=== PATIENT | female | born 1940 | race Caucasian/White ===

== ENCOUNTER 2019-02-07 13:28 | Emergency (ER) | payer MEDICARE, OTHER ==
[~2019-02-07] VITALS: Ht 162.6 cm; Wt 69.0 kg
[~2019-02-07 13:28] MED LIST: AMARYL2 MG PO; HYDROCHLOROTHIA25 MG PO; MACROBID 100 M100 MG PO; METFORMIN HCL1000 MG PO; SIMVASTATIN20 MG PO; WARFARIN SODIUM5 MG PO; ZESTRIL40 MG PO
[2019-02-07] MEDS ORDERED: METOPROLOL SUC200 MG PO (13:52)
[2019-02-07] MEDS ORDERED: PIOGLITAZONE HC15 MG PO (13:52)
[2019-02-07] MEDS ORDERED: ZOFRAN4 MG PO (16:11)
[2019-02-07] MEDS ORDERED: OXYCODONE HCL5 MG PO (16:11)
== END 2019-02-07 16:29 | disposition home or self-care (01) ==
LOC: ED 13:28
DX: S32.019A Unspecified fracture of first lumbar vertebra, initial encounter for closed fracture (principal); S22.089A Unspecified fracture of T11-T12 vertebra, initial encounter for closed fracture; X50.9XXA Other and unspecified overexertion or strenuous movements or postures, initial encounter; I48.91 Unspecified atrial fibrillation; I10 Essential (primary) hypertension; Z79.899 Other long term (current) drug therapy; Z79.01 Long term (current) use of anticoagulants
CPT/HCPCS: 72100; 99283-25

== ENCOUNTER 2021-03-15 16:28 | Emergency (ER) | payer MEDICARE, OTHER ==
[~2021-03-15] VITALS: Ht 160 cm; Wt 64.0 kg
[~2021-03-15 16:28] MED LIST changes: +METOPROLOL SUC200 MG PO; +OXYCODONE HCL5 MG PO; +PIOGLITAZONE HC15 MG PO; +ZOFRAN4 MG PO
[2021-03-15] MEDS ORDERED: WARFARIN SODIUM3 MG PO (16:44)
[2021-03-15] MEDS ORDERED: HYDROCODON-ACE1 EA10 PO (18:44)
== END 2021-03-15 18:58 | disposition home or self-care (01) ==
LOC: ED 16:28
DX: S42.202A Unspecified fracture of upper end of left humerus, initial encounter for closed fracture (principal); D68.9 Coagulation defect, unspecified; W18.39XA Other fall on same level, initial encounter; I48.91 Unspecified atrial fibrillation; I10 Essential (primary) hypertension; Z79.899 Other long term (current) drug therapy; Z79.01 Long term (current) use of anticoagulants; Z79.84 Long term (current) use of oral hypoglycemic drugs
CPT/HCPCS: 70450; 71045; 73060; 80053; 85025; 85610; 96374; 99284-25; J1170

== ENCOUNTER 2021-10-13 11:18 | Emergency (ER) | payer MEDICARE, OTHER ==
[~2021-10-13] VITALS: Ht 160 cm; Wt 64.0 kg
[~2021-10-13 11:18] MED LIST changes: +HYDROCODON-ACE1 EA10 PO; +WARFARIN SODIUM3 MG PO
[2021-10-13] MEDS ORDERED: COREG3.125 MG PO (12:06)
--- NOTE | 2021-10-14 15:46 | EKG ---
[facility] [address] [facility] [place], [place] [address] Signed Atrial fibrillation with rapid ventricular response Left axis deviation ST \T\ T wave abnormality, consider anterolateral ischemia Prolonged QT Abnormal ECG No previous ECGs available Confirmed by MAYRA RODRIGUES MD ([id number]) on 10/14/2021 3:46:08 PM Electronically Signed By: MAYRA RODRIGUES MD 10/14/21 1546 PATIENT NAME: RAVI BREWER Electrocardiogram DATE OF : 40 PHYSICIAN: MAYRA RODRIGUES MD REPORT #: [id number] REPORT IS CONFIDENTIAL AND NOT TO BE RELEASED WITHOUT AUTHORIZATION
--- NOTE | 2021-10-14 15:46 | EKG ---
[facility] [address] [facility] [place] [address] Signed Atrial fibrillation Left axis deviation ST \T\ T wave abnormality, consider anterolateral ischemia Prolonged QT Abnormal ECG When compared with ECG of 13-OCT-2021 11:30, (Unconfirmed) No significant change was found Confirmed by MAYRA RODRIGUES MD ([id number]) on 10/14/2021 3:46:12 PM Electronically Signed By: MAYRA RODRIGUES MD 10/14/21 1546 PATIENT NAME: RAVI BREWER Electrocardiogram DATE OF : 40 PHYSICIAN: MAYRA RODRIGUES MD REPORT #: [id number] REPORT IS CONFIDENTIAL AND NOT TO BE RELEASED WITHOUT AUTHORIZATION
== END 2021-10-13 15:28 | disposition short-term general hospital (02) ==
LOC: ED 11:18
DX: I21.4 Non-ST elevation (NSTEMI) myocardial infarction (principal); I10 Essential (primary) hypertension; I48.91 Unspecified atrial fibrillation; Z79.899 Other long term (current) drug therapy; Z79.01 Long term (current) use of anticoagulants; Z79.84 Long term (current) use of oral hypoglycemic drugs
CPT/HCPCS: 71046; 80053; 83735; 84484; 85025; 85610; 93005; 93010; 96374; 96375; 96376; 99285-25; J1644; U0003

== ENCOUNTER 2023-05-14 18:20 | Emergency (ER) | payer MEDICARE, OTHER ==
[~2023-05-14] VITALS: Ht 160 cm; Wt 53.1 kg
--- OUTSIDE RECORDS SUMMARY | ~2023-05-14 | XMS | Continuity of Care Document ---
Demographics + + + | Address | [address] | | | [place] [address] | + + + | Preferred Language | Unknown | + + + | Marital Status | | + + + | Gnosticist Affiliation | Unknown | + + + | Race | White | + + + | Ethnic Group | Unknown | + + + Author + + + | Author | [facility] | + + + | Organization | [facility] | + + + | Address | [address] | | | [place] [address] | + + + | Phone | | + + + Care Team Providers + + + + | Care Production Quality Analyst Name | Role | Phone | + + + + Unavailable | Unavailable | + + + + Allergies No information. Encounters No information. Functional Status No information. Immunizations No information. Medications No information. Problems + + + + | date | description | facility | + + + + | 2021-03-15 16:29 | Coagulation defect, | [facility] | | | unspecified | [facility] | + + + + | 2021-03-15 16:29 | Unspecified fracture of | [facility] | | | upper end of left humerus, | [facility] | | | initial encounter for | | | | closed fracture | | + + + + | 2021-03-15 16:29 | Other fall on same level, | [facility] | | | initial encounter | [facility] | + + + + | 2023-04-27 14:45 | UNSPECIFIED ATRIAL | [facility] | | | FIBRILLATION | | + + + + | 2023-04-27 14:45 | ENCOUNTER FOR THERAPEUTIC | [facility] | | | DRUG LEVEL MONITORING | | + + + + | 2023-04-27 14:45 | 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 Results/Labs No information. Social History No information. Vital Signs No information."
--- OUTSIDE RECORDS SUMMARY | ~2023-05-14 | XMS | Continuity of Care Document ---
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 Results/Labs No information. Social History No information. Vital Signs No information."
[~2023-05-14 18:20] MED LIST changes: +COREG3.125 MG PO; +GLIMEPIRIDE4 MG PO; +LISINOPRIL10 MG PO; +METOPROLOL TAR100 MG PO; +POTASSIUM CHLO10 ME2 PO; +SIMVASTATIN40 MG PO; +TORSEMIDE20 MG PO
[2023-05-14 22:00] VITALS: BP 107/65
--- NOTE | 2023-05-19 19:19 | EKG ---
[facility] [address] [facility] [place] [address] Signed Atrial fibrillation with rapid ventricular response Left axis deviation Low voltage QRS Abnormal ECG When compared with ECG of 13-OCT-2021 13:20, Significant changes have occurred Confirmed by YUNIEL PRICE MD ([id number]) on 05/19/2023 7:19:06 PM Electronically Signed By: YUNIEL PRICE 05/19/231918 PATIENT NAME: RAVI BREWER BERNABE Electrocardiogram DATE OF : 40 PHYSICIAN: YUNIEL PRICE REPORT #: [id number] REPORT IS CONFIDENTIAL AND NOT TO BE RELEASED WITHOUT AUTHORIZATION
== END 2023-05-14 22:00 | disposition home or self-care (01) ==
LOC: ED 18:20
DX: E11.65 Type 2 diabetes mellitus with hyperglycemia (principal); I10 Essential (primary) hypertension; Z79.01 Long term (current) use of anticoagulants; Z79.84 Long term (current) use of oral hypoglycemic drugs
CPT/HCPCS: 36415; 51701; 70450; 71045; 80053; 81003; 84484; 85025; 93005; 93010; 99285 25; G0480; J1815; J7040

== ENCOUNTER 2024-03-03 14:24 | Inpatient (IN) | payer MEDICARE, OTHER ==
[~2024-03-03] VITALS: Ht 160 cm; Wt 64.0 kg
[~2024-03-03 14:24] MED LIST changes: +BASAGLAR K100 UNIT/1 SUB-Q; +METOPROLOL SUC100 MG PO; +METOPROLOL SUCC50 MG PO
[2024-03-03] MEDS ORDERED: ADULT LOW DOSE81 MG PO (14:39)
[2024-03-03 14:44] LABS: BASOPHILS 0.3 % (0-2); EOSINOPHILS 0.1 % (0-6); HEMATOCRIT 35.4 % (35.0-50.0); HEMOGLOBIN 11.8 g/dL (12.0-18.0); LYMPHOCYTES 19.6 % (24-44); MCH 29.2 (27-36); MCHC 33.4 g/dl (30-36); MCV 87.2 fl (81-99); MONOCYTES 4.9 % (0-12); NEUTROPHILS 75.1 % (39-80); PLATELET COUNT 238 K/uL (140-440); RBC 4.06 M/ul (4.3-5.7); RDW 15.5 (10.5-15.0)
[2024-03-03] MEDS ORDERED: SODIUM CHLORIDE 0.9% 1,000 ML IV ONE (14:45)
[2024-03-03 15:07] LABS: ALBUMIN 2.7 g/dL (3.4-5.0); ALBUMIN/GLOBULIN RATIO 0.77 (1.1-2.4); BILIRUBIN, TOTAL 0.3 ng/dL (0.2-1.0); BUN/CREATININE RATIO 46.44 (6.0-28.6); CALCIUM 7.7 mg/dL (8.5-10.1); CREATININE, SERUM 2.95 mg/dL (0.55-1.02); PROTEIN, TOTAL 6.2 g/dL (6.4-8.2)
[2024-03-03 15:09] LABS: BILIRUBIN, URINE NEGATIVE (negative); BLOOD/HGB, URINE NEGATIVE (Negative); KETONE, URINE NEGATIVE (Negative); LEUK ESTERASE, URINE NEGATIVE (negative); NITRITE, URINE NEGATIVE (negative); PH, URINE 5.5 (5-7)
[2024-03-03] MEDS ORDERED: SODIUM CHLORIDE 0.9% 1,000 ML IV SCH (17:15)
[2024-03-03 18:18] VITALS: BP 94/64
[2024-03-03] MEDS ORDERED: DEXTROSE 5% 1,000 ML IV PRN (18:45)
[2024-03-03] MEDS ORDERED: GLUCAGON,HUMAN RECOMBINANT 1 MG/ML VIAL SUB-Q PRN (18:45)
[2024-03-03] MEDS ORDERED: IBLOOD GLUCOSE TEST STRIP 1 EA TEST XX PRN (18:45)
[2024-03-03] MEDS ORDERED: DEXTROSE 50% 50 ML SYR IV PRN ×2 (18:45)
[2024-03-03 18:57] VITALS: BP 94/64
--- NOTE | 2024-03-03 18:58 | NUR ---
Patient to the medical floor, alert to self and place. Patient denies pain at this time. IV infusing per provider order. Patient's son at bedside for admit questions. Oriented patient to room and call light. Notable bruise to right hand/wrist area-son reports it has been there. Left lower lateral leg has a wound, allyvn dressing in place.
[2024-03-03] MEDS ORDERED: MENTHOL/CETYLPYRD CL 1 LOZ LOZENGE PO PRN (19:00)
[2024-03-03] MEDS ORDERED: MAGNESIUM SULFATE 2 GM/50 ML BAG IV ONE (19:00)
[2024-03-03] MEDS ORDERED: BENZONATATE 100 MG CAP PO PRN (20:45)
[2024-03-03] MEDS ORDERED: ondansetron HCL 4 MG/2 ML VIAL IV PRN (20:45)
[2024-03-03] MEDS ORDERED: ACETAMINOPHEN 500 MG TAB PO PRN (20:45)
[2024-03-03] MEDS ORDERED: MAGNESIUM HYDROXIDE 30 ML UDC PO PRN (20:45)
--- NOTE | 2024-03-03 20:55 | NUR ---
LAB IN FOR BLOOD DRAW, MG 2GM IV HUNG PER EARILIER ORDER, UPDATED THIS WAS JUST GIVEN, MG BLOOD LEVEL CANCELED AT THIS TIME, PLAN TO REPEAT IN AM.
[2024-03-03] MEDS ORDERED: INSULIN LISPRO 100 UNIT/ML ML SUB-Q SCH (21:00)
[2024-03-03] MEDS ORDERED: MELATONIN 3 MG TAB PO PRN (21:00)
[2024-03-03] MEDS ORDERED: IBLOOD GLUCOSE TEST STRIP 1 EA TEST VI SCH (21:00)
[2024-03-03 21:20] LABS: PROTIME 114.8 Sec (11.2-14.2)
[2024-03-03 21:21] LABS: PARTIAL THROMBOPLASTIN TIME 76.2 Sec (22.9-41.3)
--- NOTE | 2024-03-03 21:34 | NUR ---
2132 - TIGE? from lab called to report a critical lab value - lactic acid 3.2, inr 15.53 and protime of 114.8. will notify primary rn and she will assess pt and call
[2024-03-03 21:38] LABS: INR 15.53 (0.80-1.30)
--- NOTE | 2024-03-03 22:00 | NUR ---
DR WOOD UPDATED ON ELEVATED INR 15.53 AND PT OF 114.8, CONTINUE FLUID ORDERED, NS AT 75ML/HR, CHECK FOR SITE OF BLEEDING, UPDATED ON BRUISE ON RIGHT WRIST FROM [facility] LAB STICK.
[2024-03-03 22:12] VITALS: BP 81/41
--- NOTE | 2024-03-03 22:12 | NUR ---
PT REMAINS AWAKE AND ALERT, SKIN PALE AND COOL, FINGERS AND LOWER LEGS DUSKY, BP 81/41, CHECKED TWICE, UNABLE TO OBTAIN TEMP ORAL, TEMPORAL OR AX SO RECTAL TEMP DONE, 96.1. ASSESSMENT COMPLETED, TELE ON FOR ATRIAL FIB, BREATH SOUNDS CLEAR, ACTIVE BT'S, SOFT ABDOMIN, PULSES RADIAL AND PEDAL FAINT, LLLEG WITH AVELLYN DRESSING WITH NOTED QUARTER SIZE DRAINAGE NOTED IN CENTER OF DRESSING. ATTENDS DRY.
--- NOTE | 2024-03-03 22:25 | NUR ---
TC TO DR WOOD, UPDATED ON CRITICAL LAB VALUE ON INR OF 15.53, PT 114.8, LACTIC ACID OF 3.2, ORDERS RECEIVED TO GIVEN VIT K 10MG PO, INCREASE IVF TO 100ML/HR, UPDATED ON NO U/O, REQUEST BLADDER SCAN, ORDERS RECEIVED TO STRAIGHT CATH IF RESIDUAL GREATER THAN 350ML, STATES NOT TO START ANOTHER SL AT THIS TIME DUE TO PROLONGED BLEEDING TIMES, ORDERS RECEIVED TO REPEAT LACTIC ACID IN ONE HOUR. STATES SHE WILL HOLD OFF ON NS BOLUS SINCE REPEAT BP PER TYRESE FLORES WAS REPORTED TO BE 127/102 WITH SMALL CUFF ON RIGHT ARM.
[2024-03-03 22:30] VITALS: BP 127/102
[2024-03-03] MEDS ORDERED: PHYTONADIONE 2.5 MG/2.5 ML SYR PO ONE (22:45)
[2024-03-03 22:50] VITALS: BP 73/48
--- NOTE | 2024-03-03 22:50 | NUR ---
BLOOD LEAKAGE NOTED AROUND L AC IV SITE, GOOD BLOOD RETURNED NOTED, FLUSHES WELL, SITE REDRESSED, PRESSURE DRESSING TO OVER SITE.
--- NOTE | 2024-03-03 23:00 | NUR ---
NO VOID NOTED, ATTENDS DRY, BLADDER SCANNED FOR 97ML, HEAT IN ROOM TURNED UP TO 76 DEGREES, BLANKETS REMAIN ON PT.
--- NOTE | 2024-03-03 23:20 | NUR ---
PT REMAINS AWAKE, PT MEDICATED WTIH VIT K 10MG PO PER ORDER.
--- NOTE | 2024-03-03 23:50 | NUR ---
LAB IN FOR BLOOD DRAW FOR LACTIC ACID.
[2024-03-03 23:51] VITALS: BP 78/52
[2024-03-04] VITALS (24 sets, daily range): BP systolic 78–148; BP diastolic 56–96
--- NOTE | 2024-03-04 00:05 | NUR ---
RN TO BEDSIDE, PT REMAINS AWAKE, ALERT, DENIES NEEDS, BP PER SMALL CUFF LEFT ARM 73/48, RECHECKED AFTER HEAD LOWERED NOW 78/52, MANUAL CUFF COMPLETED AND 78/60, TEMP NOW 97.1 ORALLY, FINGERS SLIGHTLY WARMER BUT REMAIN PALE, IV SITE INTACT.
--- NOTE | 2024-03-04 00:20 | NUR ---
TC TO DR WOOD, UPDATED ON SOFT BP'S, 73/48 WITH RECHECK OF 78/52, MANUAL BP DONE ON RIGHT ARM IS 78/60, PT'S TEMP UP TO 97.1 PO, SATS STABLE ON RA, NOTIFIED OF RECENT LACTIC ACID OF 2.4, ORDERS RECEIVED TO START A BOLUS OF 1 LITER NS OVER 1 HOUR AND TRANSFER TO CCU, ORDERS RECEIVED PER TYRESE FLORES. SUPERVISIOR UPDATED PER CHARGE NURSE. NS BOLUS STARTED PER LAC SITE, SITE INTACT.
--- NOTE | 2024-03-04 00:26 | NUR ---
PRIMARY RN RADHA ON PHONE WITH DR WOOD FOR pt UPDATE. PER PRIMARY RN, pt TO BE TRANSFERRED TO CCU. FINISH OPENER CHINO MADE AWARE AT THIS TIME.
[2024-03-04] MEDS ORDERED: SODIUM CHLORIDE 0.9% 1,000 ML IV ONE ×2 (00:30→00:45)
--- NOTE | 2024-03-04 00:31 | NUR ---
X1L BOLUS OF NS TO INFUSE OVER 1 HR PLACED PER REQUEST OF PRIMARY RN RADHA. BOLUS ALREADY HUNG AND INFUSING DIRECTED, HUNG BY PRIMARY RN.
--- NOTE | 2024-03-04 00:44 | NUR ---
RECEIVED TELPHONE ORDER FROM . VERIFIED ORDERS USING THE REPEAT BACK METHOD.
[2024-03-04] MEDS ORDERED: SODIUM CHLORIDE 0.9% 1,000 ML IV SCH (00:45)
[2024-03-04] MEDS ORDERED: NOREPINEPHRINE BITARTRATE/D5W 250 ML IV SCH ×2 (00:45→02:45)
--- NOTE | 2024-03-04 01:10 | NUR ---
NEW IV PLACED. PATIENT TOLERATED ACTIVITY WELL.
--- NOTE | 2024-03-04 01:25 | NUR ---
this rn assisted with transferring pt to ccu room #127 at this time with help from precious you. precious you to take over pt care at this time.
--- NOTE | 2024-03-04 01:25 | NUR ---
PT TRANSFERED TO CCU PER BED WITH TYRESE FLORES.
--- NOTE | 2024-03-04 01:30 | NUR ---
REPORT FROM KAIN KRAUS RN TO TRANSFER CARE TO THIS RN IN CCU. AT BEDSIDE NOW, PATIENT ALERT AND ORIENTED, ON ROOM AIR. PATIENT REPORTS NO PAIN OR NAUSEA, SHE REPORTS SHE IS TIRED AND WOULD LIKE TO TRY TO SLEEP.
--- NOTE | 2024-03-04 02:24 | NUR ---
PATIENT STARTED ON LEVOPHED GTT DUE TO SOFT B/P. PATIENT ALERT AND ORIENTED.
--- NOTE | 2024-03-04 04:14 | NUR ---
TWO PERSON ASSIST UP TO BEDSIDE COMMODE, PATIENT VOIDED 150ML URINE AND SMALL FORMED BM. PATIENT CONTINUES TO BE WEAK, PATIENT DID SAY, "I THINK I AM FEELING A LITTLE BETTER" PATIENT BACK TO BED, IV SITE AT LEFT AC LEAKING BLOOD, REMOVED SITE AND APPLIED COMPRESSION.
--- NOTE | 2024-03-04 05:00 | NUR ---
ROUNDING ON PATIENT SHE IS ALERT AND ORIENTED, SHE SAID "I AM JUST THINKING ABOUT ALL THE THINGS I SHOULD GET UP AND DO" THIS RN SAID, "YOU SHOULD REST NOW, BECAUSE DAYSHIFT WILL WANT YOU UP TO RECLINER FOR MEALS AND ACTIVITIES TODAY.
--- NOTE | 2024-03-04 05:12 | EKG ---
[facility] [address] [facility] [place] [address] Signed Atrial fibrillation Left axis deviation Anterior infarct (cited on or before 03-MAR-2024) Abnormal ECG When compared with ECG of 14-MAY-2023 19:05, No significant change was found Confirmed by Surendra Hutchison ([id number]) on 03/04/2024 5:12:32 AM Electronically Signed By: SURENDRA HUTCHISON MD 03/04/24511 PATIENT NAME: RAVI BREWER Electrocardiogram DATE OF : 40 PHYSICIAN: SURENDRA HUTCHISON MD REPORT #: [id number] REPORT IS CONFIDENTIAL AND NOT TO BE RELEASED WITHOUT AUTHORIZATION
[2024-03-04 05:36] LABS: BASOPHILS 0.3 % (0-2); EOSINOPHILS 0.5 % (0-6); HEMOGLOBIN 12.2 g/dL (12.0-18.0); LYMPHOCYTES 13.5 % (24-44); MCH 28.9 (27-36); MCV 87.5 fl (81-99); MONOCYTES 5.9 % (0-12); NEUTROPHILS 79.8 % (39-80); PLATELET COUNT 230 K/uL (140-440); RBC 4.23 M/ul (4.3-5.7); RDW 15.8 (10.5-15.0)
--- NOTE | 2024-03-04 05:42 | NUR ---
PATIENT IS ALERT AND ORIENTED, AM ASSESSMENT COMPLETE.
[2024-03-04 05:45] LABS: ANION GAP 22.7 (7-21); BUN/CREATININE RATIO 49.8 (6.0-28.6); CALCIUM 7.4 mg/dL (8.5-10.1); CREATININE, SERUM 2.59 mg/dL (0.55-1.02); POTASSIUM 4.7 mmol/L (3.5-5.1)
--- NOTE | 2024-03-04 08:05 | NUR ---
Report received from third shift lieutenant RN. Patient resting in bed, awakens to voice. Patient intermittently disoriented to place, staff, however redirectable. CBG WNL. Afib rhythm noted, coarse/dim LSC, bowel tones active. 2+ edema to BLE. Wound to L lateral calf examined, photos and measurements taken. Yellow drainage noted, wound cleansed and new foam dressing applied. See flowsheet for gtt rate- pt remains stable with BP WNL. Breakfast provided.
--- NOTE | 2024-03-04 09:00 | NUR ---
1 unit SS administered. Pt finished with breakfast. Denies need to void at this time, states comfortable with no needs. Bed alarm on.
--- NOTE | 2024-03-04 09:54 | NUR ---
LOADER SEMICONDUCTOR DIES AND RN ASSISTED PT TO BEDSIDE COMMODE. PT HAD AN OUTPUT AND A SMALL BM. THIS WAS ALL CHARTED. PT AMBULATED MOSTLY BY JUST PIVOTING WITH TWO PERSON ASSIST. PT TOLERATED THIS WELL. RN HELPED PT WITH WIPING HER LENY AREA AND BEHIND. PT WAS PLACED BACK INTO BED WITH A WARM BLANKET NO FIRTHER COMPLAINTS. BED ALARM IS SUPERVISOR INSPECTION AND [facility]
--- NOTE | 2024-03-04 10:40 | NUR ---
PATIENT WORKING WITH PHYSICAL THERAPY. UP TO CHAIR WITH MODERATE TO MAX ASSIST. PATIENT RESTING AND WATCHING TV, LOOKING OUT WINDOW. CALL LIGHT IN REACH.
[2024-03-04] MEDS ORDERED: PHARMACY RENAL DOSE ADJUSTMENT 1 DOSE MISC PO SCH (12:00)
--- NOTE | 2024-03-04 12:29 | NUR ---
Patient up to BSC with 2PA assist and FWW. Back to chair, eating lunch, 1 unit SS insulin provided. Call light in reach.
--- NOTE | 2024-03-04 13:45 | NUR ---
NEW BAG IVF HUNG. PATIENT RESTING IN CHAIR, RECLINING. NO NEEDS AT THIS TIME.
[2024-03-04] MEDS ORDERED: WARFARIN PER PHARMACY PROTOCOL PO SCH (16:00)
--- NOTE | 2024-03-04 16:40 | NUR ---
Patient's family visiting. Pt 2PA with FWW to BS for large BM and void. BM light, zaheer/freitas color with gold tint/metallic sheen noted. Pt back to chair and eating dinner.
[2024-03-04 16:41] LABS: PROTIME 54.8 Sec (11.2-14.2)
[2024-03-04 16:43] LABS: INR 6.16 (0.80-1.30)
--- NOTE | 2024-03-04 18:45 | NUR ---
PATIENT 1-2PA WITH FWW BACK TO BED REQUIRING FREQUENT SAFETY CUEING. IVF INFUSING WNL. PATIENT ON ROOM AIR, LSC BUT DIM, BOWELS ACTIVE. HR IN AFIB RHYTHM, STABLE. HOSPITAL COOK IN TO CONSULT WITH PATIENT.
--- NOTE | 2024-03-04 21:03 | NUR ---
PATIENT RESTING QUIETLY IN BED EYES CLOSED. NO DISTRESS NOTED, PATIENTS WIG LAYING ON THE FLOOR.
--- NOTE | 2024-03-04 21:44 | NUR ---
PATIENT RESTING IN BED, ALERT AND ORIENTED, SHE TOLD ME ABOUT HER DAY, SHE SAID SHE FEELS TIRED AND THINKS SHE WILL TRY TO TAKE A NAP. THIS RN COMPLETED HS ASSESSMENT AND HS MEDICATION ADMINISTERED. FRESH ICE WATER HAS BEEN PROVIDED, SHE REPORTS NO OTHER NEEDS AT THIS TIME. CALL LIGHT IN REACH AND BED ALARM ON FOR PATIENT SAFETY. SHE REPORT NO PAIN OR NAUSE AND IS CURRENTLY AFEBRILE
--- NOTE | 2024-03-04 23:46 | NUR ---
PATIENT RESTING IN BED ALERT, DISORIENTED TO TIME OF DAY, REPORTS NO NEEDS AT THIS TIME. BED ALARM ON FOR PATIENT SAFETY AND CALL LIGHT IN REACH.
[2024-03-05] VITALS (26 sets, daily range): BP systolic 103–139; BP diastolic 61–98
--- NOTE | 2024-03-05 00:06 | NUR ---
PATIENT RESTING IN BED ALERT, SHE REPORTS SHE JUST HAS BEEN ABLE TO SLEEP MUCH. NO REQUESTS OR NEEDS AT THIS TIME.
--- NOTE | 2024-03-05 00:07 | NUR ---
PATIENT DECLINES WANTING MELATONIN TO HELP HER SLEEP. SHE SAID "OH, NO HTANKS I DOING ALRIGHT"
--- NOTE | 2024-03-05 03:20 | NUR ---
PATIENT NOTED TO BE HEARD COUGHING, THIS RN INTO ROOM TO ROUND, ASKED PATIENT IF SHE FELT SHE NEEDED TO GET UP TO USE THE COMMODE, SHE SAID "NO, I DONT FEEL LIKE I NEED TO RIGHT NOW"
--- NOTE | 2024-03-05 03:58 | NUR ---
PATIENT BLADDER SCANNED FOR 526ML AT THIS TIME, HAVE SPOKE WTIH HE SAID IF SHE BLADDER SCANS FOR GREATER THAN 450ML OK TO PLACE CANNON CATHETER IF SHE DOES FEEL LIKE VOIDING. OR TO GIVE 500ML BOLUS IF MINIMAL URINE NOTED ON BLADDER SCAN. PATIENT REPORTS SHE WANTS TO WAIT TO GET UP TO VOID, THIS RN DISCUSSED WITH PATIENT THAT IT WILL EASIER FOR HER TO VOID IN BEDSIDE COMMODE THAN TO HAVE CANNON PLACED. SHE THEN AGREED TO BEDSIDE COMMODE WITH TWO RN ASSIST. PATIENT VOIDED 450ML IN BEDSIDE COMMODE.
--- NOTE | 2024-03-05 05:14 | NUR ---
PATIENT ALERT TO RN IN ROOM ROUNDING. PATIENT REPORT HER BACK IS SORE IN CURRENT POSITION, THIS RN AND SUPERVISOR PRODUCTION DEPARTMENT LEA BOOSTED PATIENT UP IN BED AND PLACED PILLOWS UNDER HER KNEES. SHE REPORT SHE IS MUCH MORE COMFORTABLE NOW, NO OTHER REQUESTS OR CONCERNS AT THIS TIME.
[2024-03-05 05:28] LABS: BASOPHILS 0.4 % (0-2); EOSINOPHILS 2.3 % (0-6); HEMATOCRIT 30.3 % (35.0-50.0); HEMOGLOBIN 10.2 g/dL (12.0-18.0); LYMPHOCYTES 21.7 % (24-44); MCH 29.1 (27-36); MCHC 33.6 g/dl (30-36); MCV 86.6 fl (81-99); MONOCYTES 8.3 % (0-12); NEUTROPHILS 67.3 % (39-80); PLATELET COUNT 168 K/uL (140-440); RDW 15.7 (10.5-15.0)
[2024-03-05 05:33] LABS: ANION GAP 19.1 (7-21); BUN/CREATININE RATIO 49.76 (6.0-28.6); CALCIUM 7.4 mg/dL (8.5-10.1); CREATININE, SERUM 2.11 mg/dL (0.55-1.02); POTASSIUM 4.1 mmol/L (3.5-5.1)
[2024-03-05 05:34] LABS: INR 3.11 (0.80-1.30); PROTIME 31.7 Sec (11.2-14.2)
--- NOTE | 2024-03-05 05:53 | NUR ---
IV ALARMING, PT WITH EYES CLOSED, RESP REGULAR, UNLABORED. BED ALARM IN PLACE. NEW BAG FLUIDS NOW INFUSING. PT DID NOT STIR WHEN ASSESSING IV RIGHT FOREARM.
--- NOTE | 2024-03-05 06:38 | NUR ---
UPDATED ON PATIENT NIGHT I/O, NO NEW CONCERNS THIS AM.
--- NOTE | 2024-03-05 07:50 | NUR ---
In room to complete morning assessment. Pt resting in bed with eye's closed. awakened easily. Pt stated, "Im really tired this morning." Pt refused breakfast at this time. will leave breakfast tray at bedside and continue to encourage.
[2024-03-05] MEDS ORDERED: METOPROLOL SUC100 MG PO (07:53)
[2024-03-05] MEDS ORDERED: BASAGLAR K100 UNIT/1 SUB-Q (07:54)
--- NOTE | 2024-03-05 09:30 | NUR ---
PHYSICAL THERAPY IN ROOM WITH PATIENT.
--- NOTE | 2024-03-05 09:38 | NUR ---
IN ROOM TO TURN AND CHANGED PATIENT. PT HAS SMALL AMOUNT OF DARK LIQUID STOOL. CLEANED AND REPLACED PER WICK AT THIS TIME. PT TOLERATED WELL. APPLIED BARRIER CREAM. PTS DAUGHTER REMAINED AT BEDSIDE.
--- NOTE | 2024-03-05 09:44 | NUR ---
IN ROOM WITH PATIENT.
--- NOTE | 2024-03-05 10:23 | NUR ---
PT UP IN CHAIR EATING BREAKFAST AT THIS TIME. PTS SON IN ROOM.
--- NOTE | 2024-03-05 11:27 | NUR ---
PT UP IN CHAIR. WARM BLANKET GIVEN. PT DENIES FURTHER NEEDS AT THIS TIME. CALL LIGHT WITHIN REACH.
--- NOTE | 2024-03-05 12:56 | NUR ---
PATIENT FINISHED BREAKFAST LATE AT 1045. BLOOD SUGAR DONE BEFORE LUNCH. PATIENT STATES SHE ISNT OVERLY HUNGRY BUT WILL SEE HOW MUCH SHE CAN EAT. BLOOD SUGAR 231. 3 UNITS ADMINITERED D/T PATIENTS JUST EATING AND UNSURE IF SHE WILL EAT MUCH LUNCH. VERIFIED WITH MARK BENÍTEZ.
--- NOTE | 2024-03-05 13:05 | NUR ---
PT RESTING IN CHAIR EATING LUNCH. PT NEED ASSISTANCE OPENING MILK BUT DENIES FURTHER NEEDS AT THIS TIME. CALL LIGHT WITHIN REACH.
--- NOTE | 2024-03-05 13:30 | NUR ---
pt up to bedside commode with front wheeled walker. voided 500ml. pt back to bed. pts heart rate increased into the 140's with activity. will discuss with md starting pts home medication. warm blankets given. fresh water at bedside. call light within reach.
[2024-03-05] MEDS ORDERED: METOPROLOL SUCCINATE 100 MG TABCR PO SCH ×2 (13:40→14:22)
[2024-03-05] MEDS ORDERED: METOPROLOL SUCCINATE 50 MG TABCR PO SCH ×2 (13:51→21:00)
[2024-03-05] MEDS ORDERED: WARFARIN SOD 5 MG TAB PO ONE (14:30)
--- NOTE | 2024-03-05 15:28 | NUR ---
IN ROOM TO CHANGE DRESSING TO PATIENTS LEFT LOWER LATERAL LEG. CLEANSED WOUND WITH WOUND MERCURY CELL CLEANER. USED SKIN PREP ON THE LENY WOUND AND PLACED BREANA HONEY IN THE WOUND BED. PT HAS BROWN/BLACK TISSUE IN THE WOUND BED THAT MAY NEED DEBRIDMENT. FOAM DRESSING PLACED ON TOP OF BREANA HONEY AT THIS TIME. PT TOLERATED DRESSING CHANGED WELL. RESTING IN BED WITH NO COMPLAINTS AT THIS TIME.
[2024-03-05] MEDS ORDERED: WARFARIN SOD 5 MG TAB PO SCH (16:00)
--- NOTE | 2024-03-05 16:25 | NUR ---
IN ROOM TO ASSIST PATIENT TO BEDSIDE COMMODE AND INTO CHAIR. PT UP WITH 1 PERSON ASSIST AND FRONT WHEELED WALKER. PTS HEART RATE JUMPED INTO THE 140'S WITH ACTIVITY. HEART RATE DECREASED INTO THE 120'S WHILE AT REST. PT NOW IN CHAIR. COMPLAINING OF LEFT LEG PAIN. GAVE 500MG TYLENOL PO AT THIS TIME.
--- NOTE | 2024-03-05 17:10 | NUR ---
PT UP IN CHAIR FOR DINNER. ASSISTED WITH FOOD TRAY SET UP. PT REQUESTING A PUDDING AT THIS TIME. 1 SUGAR FREE PUDDING GIVEN. PT DENIES FURTHER NEEDS. CALL LIGHT WITHIN REACH.
--- NOTE | 2024-03-05 18:11 | NUR ---
PT UP IN CHAIR WATCHING TV. PT ATE ABOUT 50% OF DINNER. PT HAS NO COMPLAINTS OF PAIN AT THIS TIME. CALL LIGHT WITHIN REACH.
--- NOTE | 2024-03-05 19:28 | NUR ---
report from kalee rn, pt hr 109, [id number] light in reach.
--- NOTE | 2024-03-05 21:34 | NUR ---
hob up for pill with water- swallow well but coughs after - call light in reach - denies needs, alarm on bed, insulin given - pt denies need for melatonin.
[2024-03-06] VITALS (20 sets, daily range): BP systolic 97–153; BP diastolic 63–101
--- NOTE | 2024-03-06 01:00 | NUR ---
pt resting in bed with eyes closed, rr reg, hr 90-100's, call light in reach.
--- NOTE | 2024-03-06 05:00 | NUR ---
lab in for draw, pt awakens slightly and tollerates well, denies needs, call light in reach.
[2024-03-06 05:48] LABS: BASOPHILS 0.4 % (0-2); EOSINOPHILS 2.9 % (0-6); HEMATOCRIT 30.3 % (35.0-50.0); HEMOGLOBIN 10.1 g/dL (12.0-18.0); LYMPHOCYTES 24.6 % (24-44); MCH 28.9 (27-36); MCHC 33.2 g/dl (30-36); MCV 86.9 fl (81-99); MONOCYTES 8.8 % (0-12); NEUTROPHILS 63.3 % (39-80); PLATELET COUNT 129 K/uL (140-440); RBC 3.49 M/ul (4.3-5.7)
[2024-03-06 06:05] LABS: MAGNESIUM 1.5 mg/dL (1.8-2.4); PHOSPHORUS, INORGANIC 4.1 mg/dL (2.5-4.9)
[2024-03-06 06:12] LABS: INR 2.98 (0.80-1.30)
[2024-03-06 06:29] LABS: ANION GAP 22.1 (7-21); BUN/CREATININE RATIO 45.61 (6.0-28.6); CALCIUM 7.3 mg/dL (8.5-10.1); CREATININE, SERUM 1.71 mg/dL (0.55-1.02); POTASSIUM 4.1 mmol/L (3.5-5.1)
--- NOTE | 2024-03-06 07:00 | NUR ---
pt awaken for temp, denies needs, denies need to void, call light in reach.
--- NOTE | 2024-03-06 07:30 | NUR ---
REPORT RECEIVED. PATIENT IS SLEEPING IN BED. IVF NOW ON STANDBY. NO DISTRESS NOTED.
--- NOTE | 2024-03-06 08:15 | NUR ---
WOKE FOR ASSESSMENT. IS DROWSY. DENIES PAIN. DRESSING TO LLL IS INTACT. EDEMA BILAT TO LEGS. NO DISCHARE NOTED ON DRESSING. PATIENT IS ABLE TO FOLLOW COMMANDS. STATES SHE FEELS BETTER THIS MORNING. IS SOMEWHAT SLOW TO RESPOND. FINE CRACKLES IN BASES OF LUNG BILAT. DENIES SHORTNESS OF BREATH. ACCUCHECK-139. NO INSULIN GIVEN. UP TO COMMODE WITH ASSIST TO VOID 950 CC OF CLEAR YELLOW URINE. VERY WEAK WITH TRANSFER. THEN TO CHAIR FOR BREAKFAST.
[2024-03-06] MEDS ORDERED: MAGNESIUM SULFATE 4 GM/100 ML BAG IV ONE (08:30)
[2024-03-06] MEDS ORDERED: WARFARIN SOD 5 MG TAB PO SCH (09:00)
--- NOTE | 2024-03-06 09:30 | NUR ---
UR CLINICAL REVIEW: 2 MN RULE FOR [facility] INPT 03/03/24 @ 1728 ORDER MATCH NO AUTH REQUIRED DISPOSITION PENDING FURTHER EVAL. POSSIBLE PLACEMENT
--- NOTE | 2024-03-06 09:30 | NUR ---
TOOK BREAKFAST WELL.
--- NOTE | 2024-03-06 09:33 | NUR ---
SPOKE WITH JERRY, PATIENT'S SON. PATIENT LIVES ALONE IN [place] HOME. JERRY GOES OVER IN THE MORNING AND EVENINGS TO GIVE PATIENT HER MEDICATIONS AND ENSURE SHE WAS FOOD AND WATER. PATIENT IS ALONE THROUGHOUT THE DAY AND NIGHT. USES A WALKER AND HAS A LIFT CHAIR, NO OTHER MEDICAL EQUIPMENT. PATIENT DOES NOT DRIVE, JERRY PROVIDES TRANSPORATION WHEN NEEDED. DEMOGRAPHICS VERIFIED WITH JERRY. PATIENT HAS HAD SNF RECOMMENDED FOR DC PLAN. JERRY IS AGREEABLE TO SNF[facility]. HIS SECOND AND THIRD CHOICE ARE [facility] THE [facility] OR [facility]. CHART FAXED TO ALL THREE FACILITIES.
--- NOTE | 2024-03-06 09:47 | NUR ---
TYLENOL 500 MG PO GIVEN FOR LOWER LEG PAIN.
--- NOTE | 2024-03-06 10:00 | NUR ---
PHY THERAPY HERE TO WORK WITH PATIENT, BACK TO BED.
--- NOTE | 2024-03-06 10:05 | NUR ---
NOW IN BED RESTING. LEG IS ELEVATED ON PILLOW. IV MG INFUSING.
--- NOTE | 2024-03-06 11:53 | NUR ---
RECEIVED CALL FROM ADRIA JJ AT THE [facility], ABLE TO ACCEPT PATIENT ANY TIME TOMORROW BEFORE 1400.
--- NOTE | 2024-03-06 12:00 | NUR ---
LABS DRAWN AND ASSESSMENT DONE. TO COMMODE TO VOID THEN TO CHAIR FOR LUNCH. STRONGER WITH THIS TRANSFER THEN THIS MORNING. AMBULATING FAIR WITH WALKER.
[2024-03-06 12:12] LABS: PH, VENOUS 7.242 (7.31-7.41)
--- NOTE | 2024-03-06 12:15 | NUR ---
ACCUCHECK-308. INSULIN 7 UNITS GIVEN.
[2024-03-06 12:26] LABS: ANION GAP 14.4 (7-21); BUN/CREATININE RATIO 39.13 (6.0-28.6); CALCIUM 7.6 mg/dL (8.5-10.1); CREATININE, SERUM 1.84 mg/dL (0.55-1.02); POTASSIUM 4.4 mmol/L (3.5-5.1)
--- NOTE | 2024-03-06 12:35 | NUR ---
LABS REPORTED TO DR. BOLANOS.
[2024-03-06] MEDS ORDERED: DEXTROSE 5% - LACTATED RINGERS 1,000 ML IV SCH (13:30)
--- NOTE | 2024-03-06 13:30 | NUR ---
BACK TO BED, TRANSFERS WELL WITH WALKER.
--- NOTE | 2024-03-06 15:14 | NUR ---
RECVD CALL FROM SWETA AT [facility], PATIENT HAS BEEN ACCEPTED FOR ADMISSION. CALLED TO SPEAK WITH PATIENT SON JERRY THE PATIENT HAS ALSO BEEN ACCEPTED TO [facility]. AT THIS TIME JERRY WISHES TO SEND THE PATIENT TO [facility] SO THAT FAMILY WILL BE ABLE TO VISIT. PLAN TO SEND PATIENT TO [facility] WHEN STABLE. PATIENT SON JERRY TO TRANSPORT.
--- NOTE | 2024-03-06 16:00 | NUR ---
NO CHANGES IN ASSESSMENT. DENIES PAIN. IVF PATENT. AFFECT FLAT.
--- NOTE | 2024-03-06 19:30 | NUR ---
report from Madisyn Reeder rn,pt resting in bed, confused on rn introduction - pleasant but thinks its am at this time and does not know the day/date or time. denies needs. call light in reach.
--- NOTE | 2024-03-06 20:00 | NUR ---
rn spoke with dr. guillen about repeat mg level after replacement today - he is aware of pt confusion and will enter labs for am. pt up to bsc x2 staff to void 300 ml - weak, denies pain. back to bed, call light in reach- assessment done. left leg dressing on pink foam - cdi. edema noted to le- unchanged.
--- NOTE | 2024-03-06 21:22 | NUR ---
hob up for oral tylenol and melatonin - pt awake reports trouble sleeping and gen ache from bed. repositioned, pt has exp. wheeze noted now repositioned. call light in reach.
--- NOTE | 2024-03-06 22:06 | NUR ---
call to dr to confirm labs now and for am. Lab in drawing blood. pt tollerated well.
[2024-03-06 22:13] LABS: PH, VENOUS 7.243 (7.31-7.41)
[2024-03-06 22:25] LABS: ANION GAP 14.3 (7-21); BUN/CREATININE RATIO 36.02 (6.0-28.6); CALCIUM 7.5 mg/dL (8.5-10.1); CREATININE, SERUM 1.86 mg/dL (0.55-1.02); POTASSIUM 4.3 mmol/L (3.5-5.1)
[2024-03-07] VITALS (11 sets, daily range): BP systolic 100–136; BP diastolic 70–93
--- NOTE | 2024-03-07 02:34 | NUR ---
pt calling for giorgi? rn in room -pt with call light in hand calling out for giorgi - pt needs to use bsc. 2 person assist to void 400 ml urine - linen changed, nick care done back to bed with call light and alarm on. denies needs, asks what time of day it is - explains it is night/early am - curtain is open and she can see out that it is dark. pt says bari and thank you- pleasant.
[2024-03-07 05:32] LABS: BASOPHILS 0.6 % (0-2); EOSINOPHILS 2.8 % (0-6); HEMATOCRIT 27.8 % (35.0-50.0); HEMOGLOBIN 9.4 g/dL (12.0-18.0); LYMPHOCYTES 25.7 % (24-44); MCH 29.2 (27-36); MCHC 33.8 g/dl (30-36); MCV 86.5 fl (81-99); MONOCYTES 9.7 % (0-12); NEUTROPHILS 61.2 % (39-80); PLATELET COUNT 126 K/uL (140-440); RBC 3.21 M/ul (4.3-5.7)
[2024-03-07 05:44] LABS: ANION GAP 16.4 (7-21); BUN/CREATININE RATIO 37.07 (6.0-28.6); CALCIUM 7.6 mg/dL (8.5-10.1); CREATININE, SERUM 1.78 mg/dL (0.55-1.02); INR 4.15 (0.80-1.30); MAGNESIUM 2.3 mg/dL (1.8-2.4); POTASSIUM 4.4 mmol/L (3.5-5.1)
--- NOTE | 2024-03-07 06:39 | NUR ---
labs reviewed, no new orders - mag. wnl. pt resting hr 85, call light in reach.
--- NOTE | 2024-03-07 07:30 | NUR ---
REPORT RECEIVED. PATIENT IS SLEEPING IN BED. IVF PATENT. NO DISTRESS NOTED.
--- NOTE | 2024-03-07 08:00 | NUR ---
AWAKE, ASSESSMENT DONE. C/O INCREASE PAIN IN LLL WITH MOVEMENT. PATIENT STATES SHE SLEPT BETTER LAST NIGHT AND SHE FEELS BETTER THIS MORNING. OOB TO COMMODE THEN TO CHAIR FOR BREAKFAST. USING WALKER WITH AMBULATION AND TRANSFERS. TALKED WITH PATIENT ABOUT POC FOR THE DAY. PATIENT IS FORGETFUL. ACCUCHECK 187, INSULIN 3 UNITS SQ GIVEN. SITTING UP READY TO TAKE BREAKFAST.
[2024-03-07] MEDS ORDERED: WARFARIN SOD HOLD 1 EA PO SCH (09:00)
--- NOTE | 2024-03-07 09:00 | NUR ---
TOOK BREAKFAST WELL. TO COMMODE TO EXPELL LARGE MOON SHINY SOFT STOOL. THEN TO SHOWER CHAIR. GAVE PATIENT SHOWER, TOLERATED WELL.
--- NOTE | 2024-03-07 09:30 | NUR ---
BACK TO BED AFTER SHOWER.
--- NOTE | 2024-03-07 10:00 | NUR ---
NAPPING. NO DISTRESS NOTED. IVF CONTINUE TO INFUSE AT 75 ML/HR.
--- NOTE | 2024-03-07 12:00 | NUR ---
ASSESSMENT UNCHANGED. INSULIN 5 UNITS SQ GIVEN. SITTING UP IN BED TO EAT LUNCH.
--- NOTE | 2024-03-07 12:50 | NUR ---
TYLENOL 500 MG PO GIVEN FOR LLL PAIN.
--- NOTE | 2024-03-07 13:51 | NUR ---
ATTEMPTED VISIT DURING SPIRITUAL CARE ROUNDS. PT APPEARED TO BE SLEEPING. DID NOT DISTURB. LEFT GUIDEPOST WITH PRAYER CARD AND CONTACT CARD; PROVIDED PRAYER.
--- NOTE | 2024-03-07 14:30 | NUR ---
Physical therapist working with patient. Able to stand at edge of bed, transfer to BSC. Pt has large BM and void. Linens and gown changed. Assisted to reposition in bed. Call light in reach, patient states no further needs.
--- NOTE | 2024-03-07 15:00 | NUR ---
RESTING IN BED. DENIES PAIN.
[2024-03-07 16:46] LABS: ANION GAP 12.4 (7-21); BUN/CREATININE RATIO 33.33 (6.0-28.6); CALCIUM 7.6 mg/dL (8.5-10.1); CREATININE, SERUM 1.74 mg/dL (0.55-1.02); POTASSIUM 4.4 mmol/L (3.5-5.1)
[2024-03-07 16:56] LABS: ALBUMIN/GLOBULIN RATIO 0.65 (1.1-2.4); BILIRUBIN, DIRECT 0.1 mg/dL (0.0-0.2); BILIRUBIN, INDIRECT 0.1 (0.1-0.7); BILIRUBIN, TOTAL 0.2 ng/dL (0.2-1.0); PROTEIN, TOTAL 5.1 g/dL (6.4-8.2)
--- NOTE | 2024-03-07 19:06 | NUR ---
RESTING. NO CHNAGES. REPORT TO NEXT SHIFT.
--- NOTE | 2024-03-07 19:42 | NUR ---
RECEIVED REPORT FROM DAY SHIFT RN. PATIENT IS RESTING IN BED. PATIENTS LIGHTS TURNED OFF AND CURTAIN CLOSED. NO FURTHER NEEDS NOTED. CALL LIGHT IN REACH. BED ALARM ON FOR SAFETY.
--- NOTE | 2024-03-07 20:15 | NUR ---
PATIENT IS RESTING IN BED. VITALS TAKEN AND RECORDED. INTAKE AND OUTPUT RECORDED. PATIENT DENIES ANY PAIN. PATIENTS PM MEDS GIVEN PER ORDER. PATIENT GIVEN PRN SLEEP AID PER ORDER. PATIENTS IV INFUSING PER ORDER. PATIENT ASSESMENT COMPLETED. PATIENT DENIES ANY NEEDS. CALL LIGHT IN REACH. BED ALARM ON FOR SAFETY.
--- NOTE | 2024-03-07 22:42 | NUR ---
PATIENT IS RESTING IN BED WITH EYES CLOSED, RR 15. CALL LIGHT IN REACH. IV INFUSIGN PER ORDER. BED ALARM ON FOR SAFETY.
--- NOTE | 2024-03-07 23:44 | NUR ---
PATIENT ASSISTED TO THE BSC A 1PA W/FWW. PATIENT IS BACK IN BED RESTING. PATIENT REPOSITIONED IN BED. PATIENT PROVIDED SIPS OF WATER. PATIENT DENIES ANY FURTHER NEEDS. CALL LIGHT IN REACH. BED ALARM ON FOR SAFETY. IV INFUSING PER ORDER. PATIENT REPORTED "CAN YOU HELP MY LITTLE SISTER". PATIENT REPORTED THAT HER SISTER WAS IN THE ROOM WITH HER. PATIENT REORIENTED AND EDUCATED THAT SHE AND THIS RN ARE THE ONLY PERSONS IN THE ROOM.
[2024-03-08] VITALS (12 sets, daily range): BP systolic 106–156; BP diastolic 62–96
--- NOTE | 2024-03-08 00:04 | NUR ---
PATIENT REPOSITIONED IN BED. PATIENT APPEARS UNCOMFORTABLE. PATIENT OFFERED PRN TYLENOL. PATIENT REPORTS 3/10 BACK PAIN AND 2/10 PAIN IN HER LLE. PRN TYELNOL GIVEN PER ORDER. PATIENT PROVIDED SIPS OF WATER. PATIENT DENIES ANY FURTHER NEEDS. CALL LIGHT IN REACH BED ALARM ON FOR SAFETY. VITALS RECORDED. IV INFUSING PER ORDER.
--- NOTE | 2024-03-08 01:13 | NUR ---
PATIENT ASSISTED TO THE BSC A 1PA W/FWW. PATIENT ABLE TO VOID. PATIENT IS BACK IN BED RESTING. PATIENT PROVIDED WARM BLANKET AND SIPS OF WATER. PATIENT DENIES ANY FURTHER NEEDS. CALL LIGHT IN REACH. BED ALARM ON FOR SAFETY. IV INFUSING PER ORDER.
--- NOTE | 2024-03-08 02:41 | NUR ---
PATIENT IS RESTING IN BED WITH EYES CLOSED, RR 13. CALL LIGHT IN REACH. BED ALARM ON FOR SAFETY. IV INFUSING PER ORDER.
--- NOTE | 2024-03-08 04:27 | NUR ---
PATIENT IS RESTING IN BED WITH EYES CLOSED, RR 14. CALL LIGHT IN REACH. IV INFUSING PER ORDER. BED ALARM ON FOR PATIENT SAFETY.
--- NOTE | 2024-03-08 05:28 | NUR ---
PATIENT ASSISTED TO THE BSC A 1PA W/FWW. PATIENT ABLE TO VOID. PATIENT IS BACK IN BED RESTING. VITALS RECORDED. INTAKE AND OUTPUT RECORDED. PATIENTS ASSESMENT COMPLETED. IV INFUSING PER ORDER. PATIENT DENIES ANY FURTHER NEEDS. LAB IN ROOM. CALL LIGHT IN REACH. BED ALARM ON FOR PATIENT SAFETY. FRESH ICE WATER PROVIDED.
[2024-03-08 05:32] LABS: BASOPHILS 0.6 % (0-2); EOSINOPHILS 2.7 % (0-6); HEMATOCRIT 29.6 % (35.0-50.0); HEMOGLOBIN 9.8 g/dL (12.0-18.0); MCH 28.9 (27-36); MCHC 33.1 g/dl (30-36); MCV 87.5 fl (81-99); MONOCYTES 7.3 % (0-12); NEUTROPHILS 59.4 % (39-80); PLATELET COUNT 156 K/uL (140-440); RBC 3.38 M/ul (4.3-5.7); RDW 16.6 (10.5-15.0)
[2024-03-08 05:42] LABS: ANION GAP 15.2 (7-21); BUN/CREATININE RATIO 32.05 (6.0-28.6); CALCIUM 7.5 mg/dL (8.5-10.1); CREATININE, SERUM 1.56 mg/dL (0.55-1.02); POTASSIUM 4.2 mmol/L (3.5-5.1)
[2024-03-08 05:43] LABS: INR 3.21 (0.80-1.30); PROTIME 31.8 Sec (11.2-14.2)
--- NOTE | 2024-03-08 06:55 | NUR ---
PATIENT REPOSITIONED IN BED. PATIENT DENIES ANY FURTHER NEEDS. CALL LIGHT IN REACH. BED ALARM ON FOR PATIENT SAFETY. IV INFUSING PER ORDER.
--- NOTE | 2024-03-08 07:30 | NUR ---
REPORT RECEIVED. PATIENT IS RESTING IN BED.
--- NOTE | 2024-03-08 08:00 | NUR ---
SITTING UP IN BED FOR BREAKFAST. ASSESSMENT COMPLETE. LUNGS WITH FEW SCATTERED WHEEZES AND CRACKLES. C/O MILD LLL PAIN, INCREASES WITH MOVEMENT. IVF ON STANDBY AT THIS TIME, POC IS TO DISCHARGE TO [facility] TODAY.
--- NOTE | 2024-03-08 08:30 | NUR ---
TOOK BREAKFAST WELL. OOB TO COMMODE TO VOID. AMBULATED IN ROOM USING WALKER AFTER USING COMMODE. TOLERATED AMBULATION WELL. THEN TO CHAIR.
--- NOTE | 2024-03-08 08:44 | NUR ---
SITTING IN CHAIR. CONTINUES WITH DRY FREQUENT COUGH.
--- NOTE | 2024-03-08 08:57 | NUR ---
DR. BOLANOS AWARE OF PATIENT INCREASE COUGH AND BREATH SOUNDS. CXR ORDERED. PATIENT STATES SHE FEELS LIKE SHE CAN'T BREATH.
[2024-03-08] MEDS ORDERED: WARFARIN SOD HOLD 1 EA PO SCH (09:00)
[2024-03-08] MEDS ORDERED: ALBUTEROL SULFATE 0.083% 3 ML VIAL ONE (09:17)
--- NOTE | 2024-03-08 09:33 | NUR ---
PATIENT IS SITTING UP TO CHAIR, DENIES NEEDS AT THIS TIME.
--- NOTE | 2024-03-08 09:36 | NUR ---
PT/OT IN TO WORK WITH PATIENT.
--- NOTE | 2024-03-08 09:45 | NUR ---
PER DR. BOLANOS PATIENT NO READY FOR DISCHARGE AT THIS TIME. MYNOR AND SWETA AT [facility] UPDATE AND WILL PLAN FOR DISCHARGE TOMORROW. UPDATED CHART NOTES FAXED. PATIENT SON JERRY IN THE ROOM AT THE TIME OF DECISION SPEAKING WITH DR. BOLANOS.
--- NOTE | 2024-03-08 10:08 | NUR ---
PER RN AND PT/OT, PT AMBULATED IN [facility] 1 PA W FWW. PT IS OKAY TO AMBULATE TO BR. PT ALSO BRUSHED TEETH.
--- NOTE | 2024-03-08 10:24 | NUR ---
LE 0955: THIS RN COMES DOWN TO ASSESS CHANGE PT'S DRESSING FOR THE LLE LATERAL/POSTERIOR CALF SKIN TEAR. THE OLD DRESSING IS REMOVED. THE WOUND IS CLEANSED WITH WOUND CLEANSER AND DRY GAUZE. THE WOUND IS MEASURED AND PHOTOGRAPHED. THERE IS SIGNIFICANTLY LESS STABLE NECROTIC ESCHAR IN PLACE - BEING ABOUT 25%, THE REMAINING 75% OF THE WOUND IS SLOUGHT TISSUE. THE PT REPORTS PAIN 5/10 IN THE WOUND WITH CLEANING THE AREA. THE EDGES OF THE WOUND HAVE A GOOD DEAL OF REDNESS, THERE IS NOT SIGNIFICANT WARMTH IN THE WOUND AREA. THERE IS THE POSSIBILITY OF INFECTION IN THIS AREA OR AT THE VERY LEAST IT IS HEADED THAT WAY. DR. BOLANOS IS IN THE ROOM AND PUTS EYES ON THE WOUND HIMSELF. SKIN PREP IS APPLIED TO PERIWOUND SKIN. MEDIHONEY IS APPLIED TO A FOAM DRESSING THEN BOTH THE MEDIHONEY AND ADHESIVE FOAM DRESSING ARE APPLIED TO THE WOUND. A STOCKINETTE IS PUT OVER THE AREA TO KEEP THE PT FROM MESSING WITH THE DRESSING. LE 1010: DRESSING CHANGE AND WOUND EVALUATION IS COMPLETE.
[2024-03-08] MEDS ORDERED: SIMETHICONE 125 MG TABLET CHEWABLE PO PRN (10:30)
--- NOTE | 2024-03-08 10:54 | NUR ---
Pt c/o leg pain from wound on l. leg. pt did not want to get back to bed when asked, pt leg elevated and pressure off wound. pt declined ice pack and warm blanket. no needs, call light within reach
[2024-03-08] MEDS ORDERED: TRAMADOL HCL 50 MG TAB PO PRN (11:30)
--- NOTE | 2024-03-08 12:01 | NUR ---
PT ARRIVED TO FLOOR IN RECLINER FROM 127 AT 1150 WITH CAREGIVER/RN ASSISTANCE. IV TO (R) FOREARM, PATENT AND PT DENIES PAIN WITH FLUSH. D5LR INFUSING NOW AT 100ML/HR PER ORDERS. (L) LOWER LEG DRESSING IN PLACE, PATIENT C/O 10/10 PAIN, JUST GIVEN ULTRAM PRIOR TO TRANSFER, PT STATES TYLENOL DID NOT HELP, SHE STATES SHE WAS REALLY HOPING FOR A FAST ACTING PAIN MEDICATION. LLE ELEVATED UP ON 2 PILLOWS TO SEE IF THAT WILL HELP PAIN. PT BELONGINGS IN ROOM ALONG [facility] THAT TRANSFERRED OVER FROM CCU. PT VS STABLE AT THIS TIME, PT DENIES SOB WHILE UP IN CHAIR. LS DIMINISHED TO BILATERAL BASES, SOME OCCASIONAL WHEEZES TO UPPER LOBES, IS PRESENT AT BEDSIDE AND PT ENCOURAGED TO WORK WITH ME ON THAT TODAY. SCATTERED BRUISES TO UPPER ARMS. ALL PT CARE NEEDS MET AT THIS TIME, PT PROVIDED FRESH ICE WATER. CALL LIGHT WITHIN REACH AT THIS TIME.
--- NOTE | 2024-03-08 12:18 | NUR ---
IN TO ADMINISTER MEDICATION, SEE MAR. PT SITTING UP IN RECLINER WITH LUNCH TRAY. PT REQUESTING TO BE REPOSITIONED. PT REPOSITIONED. BLE ELEVATED ON PILLOW IN RECLINER. PT DENIES ANY OTHER NEEDS AT THIS TIME. CALL LIGHT IN REACH.
--- NOTE | 2024-03-08 13:41 | NUR ---
PT IS SLEEPING IN RECLINER AT THIS TIME. PT APPEARS COMFORTABLE, LLE IS ELEVATED UP ON PILLOWS STILL. CALL LIGHT WITHIN REACH, ALLOWED TO SLEEP AT THIS TIME. ALL PT CARE NEEDS MET.
--- NOTE | 2024-03-08 13:43 | NUR ---
PT IS WATCHING TV/LISTENING TO MUSIC CHANNEL IN BED. CRYO MACHINE IN PLACE AND ON AT THIS TIME. PT DENIES ANY NEEDS AT THIS TIME, BED ALARM IN PLACE, CALL LIGHT WITHIN REACH. ALL PT CARE NEEDS MET FOR THE TIME BEING.
--- NOTE | 2024-03-08 14:54 | NUR ---
PT RESTING IN HER RECLINCER STILL, FAMILY/FRIEND PRESENT IN ROOM WHILE PATIENT SLEEPS. CALL LIGHT WITHIN REACH, ALL PT CARE NEEDS MET PATIENT SLEEPS. NO FURTHER NEEDS AT THIS TIME.
--- NOTE | 2024-03-08 15:27 | NUR ---
PT CALL LIGHT TO UTILIZE THE BATHROOM, PT 1PA/FWW UP TO BSC AT THIS TIME, VOIDED. COCCYX INTACT. BRIEFS BACK UP, PT ABLE TO GET BACK TO CHAIR WITH ASSISTANCE. FAMILY PRESENT BACK IN ROOM. IV FLUIDS INFUSING. ALL PT CARE NEEDS MET AT THIS TIME. CALL LIGHT WITHIN REACH.
[2024-03-08 16:12] LABS: ANION GAP 13.6 (7-21); BUN/CREATININE RATIO 26.28 (6.0-28.6); CALCIUM 7.6 mg/dL (8.5-10.1); CREATININE, SERUM 1.75 mg/dL (0.55-1.02); POTASSIUM 4.6 mmol/L (3.5-5.1)
--- NOTE | 2024-03-08 16:56 | NUR ---
PT RESTING WITH EYES CLOSED WHEN ENTERED ROOM, OPENED EYES. BLOOD SUGAR 260, 5 UNITS GIVEN PER SLIDING SCALE REGIMEN. PT STATES PAIN IS 2/10, OFFERED TYLENOL BUT PATIENT DECLINED AT THIS TIME. IV FLUIDS INFUSING ORDERED. CALL LIGHT WITHIN REACH, ALL PT CARE NEEDS MET, PT DENIES ANY FURTHER NEEDS.
[2024-03-08] MEDS ORDERED: PROCHLORPERAZINE EDISYLATE 10 MG/2 ML VIAL IV PRN (18:15)
[2024-03-08] MEDS ORDERED: ALBUTEROL/IPRATROPIUM 3 ML NEB INH PRN (18:15)
--- NOTE | 2024-03-08 18:20 | NUR ---
PT SITTING IN CHAIR, DINNER AT BEDSIDE, PT SON JERRY STATES PT IS FEELING NAUSEATED. EMESIS BAG, PRN ZOFRAN GIVEN IV. PT STATES NAUSEA DID IMPROVE SLIGHTLY. MD WAS CALLED PATIENT HAS AUDIBLE WHEEZES, DIMINISHED IN BASES, DENIES SOB AND SATS ARE 98% ON RA AT THIS TIME. ALSO INFORMED CBG THIS EVENING WAS 260, WITH IV FLUIDS D5LR, JUST TO NOTIFY OF CLIMBING BLOOD SUGAR. MD WILL REVIEW ORDERS AND INPUT ACCORDINGLY. PATIENT WAS UPDATED AND RT CALLED FOR BREATHING TREATMENT, SON/DAUGHTER IN LAW IN ROOM AND UPDATES GIVEN. PRN SIMETHICONE WAS GIVEN JUST PRIOR TO DINNER - SEE MAR. CURRENTLY ALL PT CARE NEEDS MET, FAMILY JUST LEFT ROOM TO ALLOW PT TO GET SETTLED IN AND RECEIVED MEDS WITH RT. PT REMAINS UP IN CHAIR, OFFERED TO GET BACK IN BED AND DECLINED AT THIS TIME. CALL LIGHT WITHIN REACH.
--- NOTE | 2024-03-08 19:10 | NUR ---
SHIFT REPORT RECEIVED FROM DAYSHIFT MARK KELLER, IN ROOM TO ASSESS pt. pt ON RA, RR EVEN AND UNLABORED, NO DISTRESS NOTED. pt RECENTLY FROM CHAIR TO BED WITH HELP FROM [employer]. pt FORGETFUL, BUT ORIENTED AT THIS TIME. BED ALARM ON FOR SAFETY, CALL LIGHT IN REACH. IV SITE WNL, FLUIDS INFUSING DIRECTED. WARM BLANKETS PROVIDED PER pt REQUEST.
--- NOTE | 2024-03-08 20:25 | NUR ---
ASSESSMENT COMPLETE, SCHEDULED MEDS GIVEN ALONG WITH PRN MELATONIN AND NEW BAG IV FLUIDS. IV SITE WNL, BRISK BLOOD RETURN NOTED, FLUIDS INFUSING DIRECTED. VSS, NO PAIN OR NAUSEA VERBALIZED BY pt WHEN ASKED. BOWEL TONES ACTIVE IN ALL QUADRANTS. LUNGS CLEAR WITH SCANT EXP WHEEZE NOTED IN RIGHT UPPER LUNG, NO DISTRESS NOTED. RR WNL, SPO2 100 ON RA. pt UP SBA WITH FWW TO BATHROOM, VOIDED 200MLS AND BACK IN BED, BED ALARM RESUMED. ACCUCHECK COLLECTED FROM LEFT HAND, RESULT OF 232. INSULIN SS AND SCHEDULED LONG ACTING INSULIN GIVEN DIRECTED-SEE EMAR. +1 EDEMA NOTED TO BLE, ELEVATED IN BED WITH USE OF PILLOW. DRESSING TO LEFT POSTERIOR CALF INTACT WITH SCANT AMOUNT RED SHADOWING NOTED. STRONG BILATERAL PEDAL PULSES NOTED-COOL TO THE TOUCH. FRESH WARM BLANKETS PROVIDED. NO ADDITIONAL NEEDS, ROOM TIDIED AND CALL LIGHT IN REACH. pt IN [facility] [employer] AND INTERACTIVE WITH STAFF. A/O X4 AT THIS TIME.
[2024-03-08] MEDS ORDERED: INSULIN GLARGINE-YFGN 100 UNIT/ML ML SUB-Q SCH (21:00)
--- NOTE | 2024-03-08 21:55 | NUR ---
CALL LIGHT ANSWERED, IV PUMP ALARMING. ISSUE RESOLVED AND IV SITE REMAINS WNL. pt THEN UP WITH FWW TO BSC TO VOID. pt BACK TO BED, ALARM RESUMED. NO FURTHER NEEDS, CALL LIGHT IN REACH.
--- NOTE | 2024-03-08 23:22 | NUR ---
ROUNDED ON pt, pt AWAKE AND RESTING IN BED. DENIES NEEDS OR CONCERNS. ON RA, RR EVEN AND UNLABORED, NO DISTRESS NOTED. BED ALARM ON AND CALL LIGHT IN REACH. IV SITE WNL, FLUIDS CONTINUE TO INFUSE DIRECTED.
--- NOTE | 2024-03-08 23:40 | NUR ---
bed alarm going off, this rn in room. pt awake and has feet on edge of bed, states, "i have to go to the bathroom and i couln't find the light". call light noted to be in reach of pt on edge of bed. pt reoriented to situation and that pt to use call light before getting oob. pt verbalized understanding and apologized. pt up sba with fww to bs and voided and back in bed. alarm resumed and call light in reach. iv site wnl, fludis infusing as directed. pt forgetful, but remains a/o to self, thought initially she was in [place] but self corrected on her own and said in the hospital in [place]. no additional needs.
--- NOTE | 2024-03-09 01:09 | NUR ---
ROUNDED ON pt, pt RESTING IN BED WITH EYES CLOSED. REMAINS ON RA, RR EVEN AND UNLABORED. NO DISTRESS OR S/SX OF SOB OR PAIN NOTED. pt APPEARS COMFORTABLE AND RELAXED. BED ALARM REMAINS ON FOR SAFETY AND CALL LIGHT IN REACH.
--- NOTE | 2024-03-09 02:21 | NUR ---
call light answered, pt up to void-sba with fww to bsc and back to bed. no acute changes to assessment. iv site remains wnl, fluids infusing as directed. slight increase to edema to right foot-ble remains elevated. lung sounds clear, slight crackles noted in right upper lobe, improves with cough. bed alarm on for safety and call light in reach. pt denies pain, sob, chest pain, nausea.
--- NOTE | 2024-03-09 02:43 | NUR ---
rounded on pt, pt resting quietly in bed with eyes closed. on ra, rr even and unlabored. bed alarm on and call light in reach.
--- NOTE | 2024-03-09 04:00 | NUR ---
rounded on pt, pt resting quietly in bed with eyes closed. on ra, rr even and unlabored. bed alarm on. call light in reach.
--- NOTE | 2024-03-09 04:32 | NUR ---
call light heard falling on floor, pt awake and resting in bed. when asked if pt needs anything, pt states, "well i'll have to go to the bathroom pretty soon". pt up sba with fww to bsc, voided and back to bed. alarm resumed and call light in reach. no additional needs, iv site wnl with fluids infusing as directed.
--- NOTE | 2024-03-09 05:25 | NUR ---
lab in room for am blood draw.
[2024-03-09 05:36] LABS: BASOPHILS 0.5 % (0-2); EOSINOPHILS 2.1 % (0-6); HEMATOCRIT 27.3 % (35.0-50.0); LYMPHOCYTES 22.8 % (24-44); MCHC 33.1 g/dl (30-36); MCV 87.7 fl (81-99); MONOCYTES 7.7 % (0-12); NEUTROPHILS 66.9 % (39-80); PLATELET COUNT 141 K/uL (140-440); RBC 3.11 M/ul (4.3-5.7); RDW 16.4 (10.5-15.0)
[2024-03-09 05:46] LABS: ANION GAP 11.5 (7-21); BUN/CREATININE RATIO 26.53 (6.0-28.6); CALCIUM 7.7 mg/dL (8.5-10.1); CREATININE, SERUM 1.47 mg/dL (0.55-1.02); POTASSIUM 4.5 mmol/L (3.5-5.1)
[2024-03-09 05:47] LABS: INR 2.07 (0.80-1.30); PROTIME 22.3 Sec (11.2-14.2)
[2024-03-09 06:51] VITALS: BP 140/89
--- NOTE | 2024-03-09 06:54 | NUR ---
IN ROOM TO COLLECT VS AND I&O'S. VSS, FRESH ICE WATER PROVIDED. pt UP TO VOID, 1PA WITH FWW. pt VOIDED 100MLS AND BACK TO BED, BED ALARM RESUMED AND CALL LIGHT IN REACH. IV SITE WNL, NEW BAG IV FLUIDS HUNG AND INFUSING DIRECTED. ABA FLORES IN ROOM TO ASSIST WITH pt BLADDER SCANNED, RESULT OF 214MLS POST VOID. pt DENEIS ADDITIONAL NEEDS, CALL LIGHT IN REACH.
--- NOTE | 2024-03-09 07:15 | NUR ---
REPORT RECEIVED FROM MARK MITCHELL. PT LAYING IN BED REQUESTING TO BE BOOSTED IN BE. PT BOOSTED. PT DENIES ANY OTHER NEEDS AT THIS TIME. CALL LIGHT IN REACH. BED ALARM ON.
--- NOTE | 2024-03-09 07:41 | NUR ---
WENT IN TO TAKE PT BLODD SUGAR. IT WAS HIGH AND NURSE WAS NOTIFIED. PT DIDNT NEED ANYTHING FROM ME AND CALL LIGHT IS WITHIN REACH.
--- NOTE | 2024-03-09 08:06 | NUR ---
IN TO ADMINISTER MEDICATIONS, SEE MAR. PT LAYING IN BED AND RESPONDS WHEN ADDRESSED. PT REPOSITIONED IN BED AND SAT UP IN HIGH FOWLERS. PT TAKES PO MEDICATION WITH NO ISSUES. PT DENIES PAIN AT THIS TIME. IV FLUSHES WNL. IV INFUSING WNL. PT DENIES ANY OTHER NEEDS AT THIS TIME. CALL LIGHT IN REACH. BED ALARM ON.
[2024-03-09] MEDS ORDERED: WARFARIN SOD 5 MG TAB PO SCH (09:00)
--- NOTE | 2024-03-09 09:00 | NUR ---
Spoke with Marce from [facility]. They will accept this pt today after 2 pm. Will update pt and staff.
--- NOTE | 2024-03-09 09:40 | NUR ---
IN TO ADMINISTER MEDICAITON, SEE MAR. PT SITTING UP IN RECLINER AND RESPONDS WHEN ADDRESSED. GARY DILLARD IN OBTAINING VITALS. PT TAKES PO MEDICATION WITH NO ISSUES. ASSESSMENT COMPLETE. LUNG SOUNDS CLEAR IN RUL AND IKER. CRACKLES IN RLL AND LLL. BOWEL TONES ACTIVE. PT REPORTING "SOME PAIN, BUT NOT BAD. JUST UNCOMFORTABLE." PT DENIES ANY OTHER NEEDS AT THIS TIME. CALL LIGHT IN REACH. CHAIR ALARM ON.
--- NOTE | 2024-03-09 09:40 | NUR ---
NOtified by staff pts son is here. Updated pt has been accepted at 2 pm. He will return with clothing and personal items. He will transport pt to [place] today.
--- NOTE | 2024-03-09 09:51 | NUR ---
THIS RN TALKED TO DR. BOLANOS REGARDING PTs CRACKLES IN LOWER LOBES. THIS RN ASKING IF IT WOULD BE OKAY TO DECREASE THE RATE OF IV FLUIDS. PER DR. CORRALES "WE CAN DC THE FLUIDS." PTs SON TO NURSES STATION. UPDATE PROVIDED. PTs FLUIDS DC'd AND PT SL AT THIS TIME. STEFANIE FROM CASE MANAGEMENT CALLED AND INFORMED PTs SON IS IN ROOM.
[2024-03-09 09:54] VITALS: BP 141/75
[2024-03-09] MEDS ORDERED: GAS RELIEF125 M1 PO (10:07)
[2024-03-09 10:19] VITALS: BP 141/75
--- NOTE | 2024-03-09 11:37 | NUR ---
IN TO ANSWER CALL LIGHT WITH GARY DILLARD. PT SITTING UP IN RECLINER. PT ASKING TO CALL SON. PT REQUESTING TO LEAVE. PT INFORMED THAT PTs SON HAS ALREADY BEEN HERE THIS MORNING. PT ALSO INFORMED THAT PTs SON WILL BE BACK AROUND 1330. PT VERBALIZES AGREEMENT. PT REQUESTING RECLINER TO FACE WINDOW. PTs RECLINER POSITIONED SO PT CAN LOOK OUT WINDOW. PT STATES "WHERE AM I NOW?" INFORMED PT THAT PT IS AT [facility]. THIS RN ASKS PT IF PT KNOWS WHY PT IS IN THE HOSPITAL AND PT STATES "NO I DON'T." INFORMED PT THAT PT HAD A FALL AT HOME AND PT THEN STATES "OH YES I FELL AND HURT MY LEG." PT PROVIDED BLANKET. PT DENIES ANY OTHER NEEDS AT THIS TIME. CALL LIGHT IN REACH. CHAIR ALARM ON.
--- NOTE | 2024-03-09 12:03 | NUR ---
IN WITH SN RAKAN TO ADMINISTER MEDICATION, SEE MAR. PT SITTING UP IN RECLINER. PT RESPONDS WHEN ADDRESSED. LUNCH TRAY PROVIDED. PT DENIES ANY OTHER NEEDS AT THIS TIME. CALL LIGHT IN REACH. CHAIR ALARM ON.
--- NOTE | 2024-03-09 13:00 | NUR ---
Orders completed by Dr. Funes and faxed to [facility]. [facility] and [facility] x 3 days faxed.
--- NOTE | 2024-03-09 13:38 | NUR ---
IN WITH GARY DILLARD AND SN DOMO. PT SITTING UP IN RECLINER. PT DRESSED IN OWN CLOTHES. IV REMOVED WNL, SEE VASCULAR ACCESS. BELONGINGS GATHERED IN BELONGINGS BAG. PT DENIES ANY OTHER NEEDS AT THIS TIME. CALL LIGHT IN REACH. CHAIR ALARM ON.
[2024-03-09 13:42] VITALS: BP 130/85
--- NOTE | 2024-03-09 13:46 | NUR ---
VISITED DURING SPIRITUAL CARE ROUNDS. PT STATED DROWSY SO SHORT VISIT. PROVIDED HOSPITALITY, SUPPORTIVE PRESENCE, PRAYER.
[2024-03-09 14:17] VITALS: BP 136/76
--- NOTE | 2024-03-09 14:23 | NUR ---
THIS RN CALLED AND GAVE REPORT TO DUNCAN PAK AT [facility]. QUESTIONS ANSWERED.
== END 2024-03-09 14:20 | DRG 683 ==
LOC: ED 14:24 → MS 17:33 → CCU 17:33 → MS 03-08 11:10
PROVIDERS: Emergency Medicine; Family Medicine; ADMIT Family Medicine; ATTEND Family Medicine
PROC: 3E033XZ Introduction of Vasopressor into Peripheral Vein, Percutaneous Approach (ICD-10-PCS; principal; 2024-03-03)
DX: N17.9 Acute kidney failure, unspecified (principal); E87.0 Hyperosmolality and hypernatremia; E87.20 Acidosis, unspecified; I51.81 Takotsubo syndrome; I13.0 Hypertensive heart and chronic kidney disease with heart failure and stage 1 through stage 4 chronic kidney disease, or unspecified chronic kidney disease; E87.1 Hypo-osmolality and hyponatremia; E87.8 Other disorders of electrolyte and fluid balance, not elsewhere classified; Z66 Do not resuscitate; I95.9 Hypotension, unspecified; N18.30 Chronic kidney disease, stage 3 unspecified; E11.22 Type 2 diabetes mellitus with diabetic chronic kidney disease; I50.9 Heart failure, unspecified; I48.91 Unspecified atrial fibrillation; Z60.2 Problems related to living alone; R79.1 Abnormal coagulation profile; K31.89 Other diseases of stomach and duodenum; Z90.49 Acquired absence of other specified parts of digestive tract; Z90.710 Acquired absence of both cervix and uterus; Z79.899 Other long term (current) drug therapy; Z79.84 Long term (current) use of oral hypoglycemic drugs; Z79.01 Long term (current) use of anticoagulants; Z79.82 Long term (current) use of aspirin; Z79.4 Long term (current) use of insulin
CPT/HCPCS: 36415; 51701; 71045; 80048; 80053; 80076; 81003; 82803; 83036; 83605; 83690; 83735; 83880; 84100; 84439; 84484; 85025; 85610; 85730; 87040; 92610; 93005; 93010; 94640; 94760; 97162; 97166; 97530; 97535; 99285-25; A9270; J1815; J2405; J3475; J7030; J7121